=== PATIENT | female | born 1990 | race African-American/Black ===

== ENCOUNTER 2023-07-08 10:33 | Outpatient (CLI) | payer BC, SELFPAY ==
--- NOTE | ~2023-07-08 | US_ITS ---
EXAMINATION: US thyroid DATE: 07/08/2023 10:50 INDICATION: Thyroid nodule. TECHNIQUE: Multiple ultrasound images of the thyroid were obtained. COMPARISON: None. FINDINGS: The right thyroid lobe measures 5.6 x 2.5 x 1.7 cm. The left thyroid lobe measures 4.7 x 2.3 x 1.9 c m. There is normal echotexture and echogenicity throughout the thyroid gland. No discrete nodules id entified. Normal vascular flow is present. IMPRESSION: 1. Normal thyroid. Reviewed, dictated and finalized at location A. [employer]LE[employer] IMPRESSION: 1. Normal thyroid.
== END 2023-07-08 10:34 ==
PROVIDERS: PCP Nurse Practitioner Obstetrics & Gynecology; Visit Provider Nurse Practitioner Obstetrics & Gynecology
DX: E04.1 Nontoxic single thyroid nodule (principal)
CPT/HCPCS: 76536

== ENCOUNTER 2023-11-06 11:24 | Emergency (ER) | payer OTHER, SELFPAY ==
--- NOTE | ~2023-11-06 | CT_ITS ---
EXAMINATION: CT abdomen pelvis w con DATE: 11/06/2023 13:23 INDICATION: Generalized abdominal pain. TECHNIQUE: Computed tomography (CT) of the abdomen and pelvis was performed with 100 mL Omnipaque 350 intravenous contrast. Automated exposure control and iterative reconstruction technique were employe d. The dose-length product was 743.99 mGy-cm. COMPARISON: None. FINDINGS: Just portions of the lung bases are clear without pneumonia or pleural effusion. The heart size is normal. No pericardial effusion. The liver is normal. There are changes of cholecystectomy. T he spleen, pancreas, adrenal glands, and kidneys are normal. There is an intrauterine device in the c ervix. There are no dilated loops of bowel. The appendix is normal. There is physiologic fluid in the pelvis. There is a 2.1 cm dominant follicle in right ovary. There is fat stranding in right lower qu adrant. The bones are unremarkable. IMPRESSION: 1. Fat stranding in right lower quadrant, consistent with edema versus inflammation. 2. Intrauterine device in abnormal position in the cervix. Reviewed, dictated and finalized at location A. IMPRESSION: 1. Fat stranding in right lower quadrant, consistent with edema versus inflamma tion. 2. Intrauterine device in abnormal position in the cervix.
[2023-11-06 11:25] VITALS: BP 150/90; PULSE 89; RESP 20; TEMP 36.9; O2SAT 100
--- NOTE | 2023-11-06 11:43 | PC.NURSE ---
pt unable to urinate at this time and declines straight cath due to being ambulatory. educated pt to use call light with any urge to urinate
[2023-11-06 11:44] LABS: Basophils Percent Auto 0.2 % (0.2-1.2); Eosinophils Percent Auto 0.1 % (0-4.4); Hematocrit 42.1 % (37.0-47.0); Hemoglobin 14.5 g/dL (12.0-15.0); Immature Granulocyte Absolute 0.05 K/mm3 (0.00-0.031); Immature Granulocyte Percent A 0.4 % (0-0.5); Lymphocytes Absolute Auto 0.96 K/mm3 (0.9-3.2); Lymphocytes Percent Auto 7.3 % (18.3-44.2); Mean Corpuscular HGB Conc 34.4 g/dl (32-36); Mean Corpuscular Hemoglobin 31.7 pg (26-34); Mean Corpuscular Volume 91.9 fl (80-100); Monocytes Absolute Auto 0.9 K/mm3 (0.1-0.6); Monocytes Percent Auto 6.6 % (2.6-8.5); Neutrophils Absolute Auto 11.2 K/mm3 (1.3-6.7); Neutrophils Percent Auto 85.4 % (45.5-73.1); Platelet Count Result 260 k/mm3 (150-375); Red Blood Count 4.58 M/mm3 (4.2-5.4); Red Cell Distribution Width 12.7 % (11.5-14.5); White Blood Count 13.1 K/mm3 (4.5-10.0)
[2023-11-06 11:55] LABS: Alanine Aminotransferase 25 U/L (6-35); Albumin Level 4.9 g/dL (3.5-5.1); Alkaline Phosphatase 87 U/L (38-126); Anion Gap 8 mmol/L (4-12); Aspartate Amino Transferase 23 U/L (14-36); Bilirubin,Total 1.9 mg/dL (0.2-1.3); Blood Urea Nitrogen 9 mg/dL (7-17); Calcium 9.2 mg/dL (8.4-10.2); Carbon Dioxide 23 mmol/L (22-30); Chloride 106 mmol/L (98-107); Estimated CRCL calculation 112 ml/min; Estimated Glomerular Filt Rate > 60; Glucose 104 mg/dL (65-110); Lipase 49 U/L (23-300); Potassium 3.8 mmol/L (3.4-5.0); Sodium 137 mmol/L (137-145)
--- NOTE | 2023-11-06 12:15 | ED.ABDPAIN ---
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 She denies any fever or chills diarrhea constipation vaginal bleeding or discharge. History of cholecystectomy, section x4, ovarian cyst bilaterally, bilateral tubal ligation Patient does not take medicine at home, was able to eat her breakfast this morning. Last miss work. On October 17 Related Data Allergies Allergy/AdvReac Type Severity Reaction Status Date / Time diphenhydramine AdvReac Hives Verified 11/06/23 11:24 [From Benadryl] Review of Systems Review of Systems: All systems reviewed & are unremarkable except as noted in HPI and below Exam Narrative: General appearance: Well-developed, well-nourished Skin: Normal color Head: Normocephalic, nontraumatic Eyes: Clear conjunctiva ENT: Oropharynx normal, ears normal, nose normal Neck: Supple, nontender Chest and respiratory: Airway patent, no respiratory distress, no accessory muscle use Heart: Regular rate/rhythm Abdomen: Soft, right lower quadrant tenderness, guarding and rebound r, no organomegaly, quiet bowel sounds Vascular: Normal peripheral pulses, normal capillary refill. 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 Quite a bit of yellowish discharge around the cervix, cervicitis, PID is a possibility. Procedures Other Procedure Procedure 1: Other Procedure: Trying to remove the IUD without success, the vaginal wall keep falling in which obscure my view. Course Consultations Consultation #1: Dr. Hanson Outpatient follow-up Date: 11/06/23 Time: 15:41 Vital Signs Vital signs: Vital Signs Temperature 36.9 C 11/06/23 11:25 Pulse Rate 89 11/06/23 11:25 Respiratory Rate 20 11/06/23 11:25 Blood Pressure 150/90 H 11/06/23 11:25 Pulse Oximetry 100 11/06/23 11:25 Oxygen Delivery Room Air 11/06/23 11:25 Temperature 36.9 C 11/06/23 11:25 Pulse Rate 95 11/06/23 14:00 Respiratory Rate 17 11/06/23 14:00 Blood Pressure 143/94 H 11/06/23 14:00 Pulse Oximetry 100 11/06/23 14:00 Oxygen Delivery Room Air 11/06/23 11:25 MDM - Abdominal Pain MDM Narrative Medical decision making narrative: Patient came to the ED with right lower quadrant pain Differential diagnosis include appendicitis, urinary tract infection, kidney stone, colitis, diverticulitis, constipation, ovarian cyst Blood workup showed elevated WBC 13.1, no fever, urine came back positive for urinary tract infection, CT abdomen and pelvis with IV contrast showed fat stranding in the right lower quadrant consistent with edema versus inflammation, IUD in abnormal position in the cervix. Pelvic exam showed quite a bit of yellowish discharge around the cervix, unable to see the thread, vaginal wall keeps falling inside vaginal pouch Dr. Hanson was identified, recommended to discharge patient on doxycycline and Flagyl, and to follow up with him as outpatient. Discharge diagnosis PID, urinary tract infection, abnormal position of the IUD. The ED patient received 1 g of Rocephin IV Discharged
[2023-11-06] MEDS: ONDANSETRON INJ 4 MG/2 ML VIAL IV PUSH (12:35)
[2023-11-06] MEDS: SODIUM CHLORIDE 0.9% IV 1,000 ML 999 ML IV CONT (12:35)
[2023-11-06] MEDS: HYDROmorphone HCL INJ (*CRX) 1 MG/ML SYR 0.5 MG IV PUSH (12:35)
[2023-11-06 12:53] LABS: Appearance Urine Cloudy (Clear); Bacteria Urine 3+ /hpf; Bilirubin Urine Negative (Negative); Blood Urine Negative (Negative); Color Urine Yellow (Yellow); Glucose Urine UA Negative (Negative); Ketones Urine Trace mg/dL (Negative); Leukocyte Esterase Ur 2+ LEU/UL (Negative); Nitrate Urine Negative (Negative); Non Pathogenic Casts 0-2; Protein Urine Negative (Negative); RBC Urine 0-2 /hpf (0-2); Specific Grav Ur 1.027 (1.001-1.035); Squamous Epithelial Cell Urine Few /hpf (Few); pH Urine 7.5 (5.0-9.0)
[2023-11-06 12:59] LABS: Add Urine Microscopic? YES
[2023-11-06 14:00] VITALS: BP 143/94; PULSE 95; RESP 17; O2SAT 100
[2023-11-06] MEDS: KETOROLAC 30 MG/ML VIAL (*BKC) IV PUSH (15:40)
[2023-11-06 15:50] VITALS: BP 138/75; PULSE 67; RESP 14; O2SAT 100
[2023-11-06 16:38] VITALS: BP 143/81; PULSE 71; RESP 17; TEMP 36.9; O2SAT 100
== END 2023-11-06 16:40 | disposition home or self-care (01) ==
PROVIDERS: Emergency Medicine; Emergency Provider Emergency Medicine; PCP Nurse Practitioner Obstetrics & Gynecology
DX: T83.69XA Infection and inflammatory reaction due to other prosthetic device, implant and graft in genital tract, initial encounter (principal); T83.32XA Displacement of intrauterine contraceptive device, initial encounter; N39.0 Urinary tract infection, site not specified; Z90.49 Acquired absence of other specified parts of digestive tract; Y84.8 Other medical procedures as the cause of abnormal reaction of the patient, or of later complication, without mention of misadventure at the time of the procedure
CPT/HCPCS: 36415; 74177; 80053; 81001; 81025; 83690; 85025; 87086; 96361; 96365; 96375; 99284; J0696; J1170; J1885; J2405; J7030; Q9967

== ENCOUNTER 2023-11-07 15:53 | Outpatient (CLI) | payer OTHER, SELFPAY ==
--- NOTE | ~2023-11-07 | US_ITS ---
EXAMINATION: US pelvic complete w TV DATE: 11/07/2023 16:48 INDICATION: Pelvic pain. Recent IUD removal. Comparison:No prior studies for comparison. TECHNIQUE: Multiple transabdominal and endovaginal sonographic images of the pelvis performed. FINDINGS: The uterus measures 10.8 x 5.6 x 5.5 cm. The endometrial complex measures 10 mm. The right ovary measures 3 x 3 x 2.2 cm. The left ovary is not visualized. There is free fluid in the pelvis. There are no abnormal masses seen on either side. IMPRESSION: 1. Mildly enlarged uterus. Reviewed, dictated and finalized at location A. IMPRESSION: 1. Mildly enlarged uterus.
== END 2023-11-07 15:54 | disposition home or self-care (01) ==
LOC: ANHIMG 15:54
PROVIDERS: PCP Nurse Practitioner Obstetrics & Gynecology; Visit Provider Obstetrics & Gynecology
DX: R10.2 Pelvic and perineal pain (principal); N85.2 Hypertrophy of uterus
CPT/HCPCS: 76830; 76856